=== PATIENT | female | born 1950 | race Caucasian/White ===

== ENCOUNTER 2020-12-21 10:36 | Inpatient (IN) | payer MEDICARE ==
[~2020-12-21] VITALS: Ht 154.9 cm; Wt 65.8 kg
--- NOTE | ~2020-12-21 | PROC ---
[address] [address] PROCEDURE REPORT Name: ARIAN VILCHIS Room: [address] IN M.R.#: [id number] Admission: 12/21/20 Attend Phys: Valerie Chan MD Discharge: Date of : 50 Report #: [id number] THIS REPORT FOR: cc: Perry Gallego MD, Stephen R. MD [facility],Medical Records Staff ~ For GI report, please see the Provation report in Perceptive 7 content. By: 1446Medical Records Staff HARSHAD /FAREED
[~2020-12-21 10:36] MED LIST: LANTUS; LISINOPRIL2.5 MG; NOVOLOG100 UNIT/1; PERCOCET PO; TIROSINT100 MCG
[2020-12-21 10:48] VITALS: BP 195/107
[2020-12-21] MEDS ORDERED: LEVO-T25 MCG PO (10:52)
[2020-12-21] MEDS ORDERED: CELEXA 10 MG TA10 M1 PO (10:53)
[2020-12-21] MEDS ORDERED: PREVAGEN (10:53)
[2020-12-21] MEDS ORDERED: LINSEED OIL1 ML PO (10:54)
[2020-12-21 10:55] LABS: ABSOLUTE BASOPHILS 0.1 thou/uL (0.0-0.2); ABSOLUTE LYMPHOCYTES 1.6 thou/uL (0.8-5.3); ABSOLUTE MONOCYTES 0.4 thou/uL (0.0-1.2); ABSOLUTE NEUTROPHILS 9.1 thou/uL (1.6-8.1); BASOPHILS 0.8 %; EOSINOPHILS 0.3 %; HEMATOCRIT 43.5 % (37.0-47.0); MCH 27.6 pg (26.0-34.0); MCHC 32.2 g/dL (28.0-37.0); MCV 85.8 fL (80.0-100.0); MONOCYTES 3.7 %; NUCLEATED RBCS 0 /100WBC; PLATELET COUNT* 279 thou/uL (150-400); POLYS 81.2 %; RBC 5.08 mil/uL (4.20-5.00); RDW-CV 14.5 % (10.5-14.5); WBC 11.2 thou/uL (4.0-11.0)
[2020-12-21 11:09] LABS: CREATININE 1.2 mg/dL (0.6-1.3)
[2020-12-21 11:25] LABS: CK-MB MASS 1.1 ng/mL (<0.5-3.6); MAGNESIUM 1.8 mg/dL (1.8-2.4); TOTAL BILIRUBIN 1.6 mg/dL (<0.1-1.0); TOTAL PROTEIN 8.3 g/dL (6.4-8.2)
[2020-12-21 11:38] LABS: APTT 21.3 Seconds (25.0-31.3); PROTIME 10.2 Seconds (9.20-11.50)
--- NOTE | 2020-12-21 14:00 | NUR ---
SECOND IV STARTED BY DEICER KIT ASSEMBLER
[2020-12-21 15:35] VITALS: BP 197/104
[2020-12-21 15:57] VITALS: BP 186/94
[2020-12-21] MEDS ORDERED: CELECOXIB200 MG PO (17:07)
[2020-12-21] MEDS ORDERED: ENDOCET 5-3251 EACH PO (17:08)
[2020-12-21] MEDS ORDERED: LANTUS SUBQ (17:09)
[2020-12-21] MEDS ORDERED: CYMBALTA20 MG PO (17:09)
--- NOTE | 2020-12-21 17:09 | EKG ---
[place] [address] ELECTROCARDIOGRAM REPORT Name: ARIAN VILCHIS Room: [address] ADM IN .R.#: [id number] Admission: 12/21/20 Attend Phys: Valerie Chan, Discharge: Date of : 50 Date of Service: 12/21/20 1045 Report #: [id number] THIS REPORT FOR: //name// [facility] ED Test Date: 2020-12-21 Test Time: 10:45:38 Pat Name: ARIAN VILCHIS Department: Room: [facility] Gender: F Organ Builder: FAREED : 1950 Requested By: Nilay Melvin Order Number: [id number] MD: Art Dotson Measurements Intervals [place] Rate: 101 P: 20 CT: 163 QRS: -57 QRSD: 92 T: 54 QT: 313 QTc: 406 Interpretive Statements Sinus tachycardia Left anterior fascicular block Abnormal R-wave progression, late transition Borderline T abnormalities, anterior leads Minimal ST elevation, lateral leads Baseline wander in lead(s) V4 No previous ECG available for comparison Electronically Signed On 12-21-2020 17:09:04 CDT by Art Dotson [email or web address] <ELECTRONICALLY SIGNED> By: Art Dotson MD, [facility] 12/21/20 1709 1045 1045 Art Dotson MD, [facility] /EPI
[2020-12-21] MEDS ORDERED: ZESTRIL10 MG PO (17:10)
[2020-12-21] MEDS ORDERED: APIDRA100 U/ML SUBQ (17:11)
[2020-12-21 17:15] VITALS: BP 180/90
--- NOTE | 2020-12-21 17:22 | NUR ---
PT ADMITTED TO ROOM 226 VIA CART FROM ED AT APPROXIMATELY 1600. REPORT RECEIVED FROM PRAVEEN PARHAM. PT ORIENTED TO ROOM AND CALL LIGHT. ADMISSION ASSESSMENT AND HISTORY CHARTED. SEPSIS SCREENING NEGATIVE. HOME MEDICATIONS RECONCILED. AT BEDSIDE AND UPDATED ON CURRENT PLAN OF CARE. PT A&0X4, DENIES ANY PAIN AT THIS TIME. PT COMPLAINS OF NAUSEA-TREATED WITH PRN PRIOR TO ARRIVAL TO FLOOR. TRACING ST ON THE INJECTION MOLDING MACHINE OFFBEARER RATE IN THE LOW 100'S. ON RA SAT UPPER 90'S. DENIES ANY SHORTNESS OF BREATH. IVF. PT UP WITH 1 ASSIST-WEAKNESS NOTED. GI CONSULT IN PLACE. PT ON FULL LIQUID DIET. MEDICATIONS PER NOV. PT REPOSITIONS SELF. HOURLY ROUNDING OBSERVED. BED IN LOW POSITION. CALL LIGHT WITHIN REACH. WILL CONTINUE PLAN OF CARE.
[2020-12-21 20:00] VITALS: BP 183/99
[2020-12-21 23:22] VITALS: BP 140/80
[2020-12-22 03:49] VITALS: BP 131/72
[2020-12-22 04:46] LABS: CALCIUM 9.6 mg/dL (8.5-10.1); CREATININE 1.1 mg/dL (0.6-1.3); HEMATOCRIT 41.4 % (37.0-47.0); HEMOGLOBIN 13.4 gm/dL (12.0-15.0); MCH 27.5 pg (26.0-34.0); MCHC 32.4 g/dL (28.0-37.0); MCV 84.9 fL (80.0-100.0); MPV 8.5 fl. (7.2-11.1); RBC 4.88 mil/uL (4.20-5.00); RDW-CV 14.8 % (10.5-14.5); WBC 17.1 thou/uL (4.0-11.0)
[2020-12-22 04:49] LABS: POTASSIUM 2.8 mmol/L (3.5-5.1)
[2020-12-22 04:50] LABS: ALBUMIN 4.1 g/dL (3.4-5.0); MAGNESIUM 2.3 mg/dL (1.8-2.4); TOTAL BILIRUBIN 1.2 mg/dL (<0.1-1.0); TOTAL PROTEIN 8.3 g/dL (6.4-8.2)
--- NOTE | 2020-12-22 06:56 | NUR ---
ASSUMED CARE OF PT AFTER REPORT AT 1930. PT A&OX4. VSS. PHYSICAL ASSESSMENT COMPLETED AND CHARTED. PT ON RA. PT TRACING SR/ST ON TELE. PT UPADLIB TO BSC. PT COMLAINED OF NAUSEA -NO RELIEF FROM ZOFRAN. PT WITH EPISODE OF ELEVATED BP. DR GÓMEZ MADE AWARE WITH NEW ORDERS. CALL LIGHT WITHIN REACH.
[2020-12-22 07:47] VITALS: BP 154/81
[2020-12-22] MEDS ORDERED: DRIZALMA SPRINK20 MG PO (07:52)
--- NOTE | 2020-12-22 11:11 | NUR ---
PT VOICED MANY CONCERNS REGARDING PT RECENT SYMPTOMS- CONCERNS BROUGHT TO DR GÓMEZ. WILL CONTINUE PLAN OF CARE.
[2020-12-22 12:03] VITALS: BP 181/81
[2020-12-22 13:47] LABS: CALCIUM 9.7 mg/dL (8.5-10.1); CREATININE 1.1 mg/dL (0.6-1.3)
--- NOTE | 2020-12-22 14:48 | NUR ---
CM S/W PT TO DISCUSS D/C PLAN. PT LIVES WITH SPOUSE. PT IS ACTIVE AND OPERATES A VEHICLE. PT DENIES HX WITH SNF OR HH. PT HAS NO DMES. PT SPOUSE, VALERY, PRESENT AT BESIDE, VALERY IS PT SUPPORT SYSTEM. PT HAS NO ANTICIPATED CM NEEDS.
[2020-12-22 15:40] VITALS: BP 159/80
--- NOTE | 2020-12-22 17:56 | NUR ---
ASSUMED CARE OF PT AT 0730. PT A&0X4, COMPLAINED OF PAIN TO HEAD THIS AM-TREATED WITH PRN TYLENOL WITH RELIEF. PT DENIES ANY NAUSEA THROUGHOUT SHIFT. TRACING SR/ST ON THE LICENSED PRACTICAL NURSE INSTRUCTOR. PT ON RA SAT UPPER 90'S. DENIES ANY SHORTNESS OF BREATH. IVF. POTASSIUM REPLACED PER ELECTROLYTE PROTOCOL-RE DRAW 4.0. PT UP WITH 1 ASSIST TO BSC-WEAKNESS NOTED. IVF AND IV ANTIBIOTICS. GI CONSULT IN PLACE. PLAN FOR GET TOMORROW 12/23. PT NPO AFTER MIDNIGHT. AT BEDSIDE THROUGHOUT SHIFT AND UPDATED ON CURRENT PLAN OF CARE. PT HAD PELVIC ULTRASOUND TODAY-REFER TO RESULTS. AM ASSESSMENT CHARTED. MEDICATIONS PER NOV. PT REPOSITIONS SELF. HOURLY ROUNDING OBSERVED. BED IN LOW POSITION. CALL LIGHT WITHIN REACH. WILL CONTINUE PLAN OF CARE.
[2020-12-22 20:00] VITALS: BP 168/93
[2020-12-23 00:33] VITALS: BP 158/74
[2020-12-23 04:29] LABS: HEMATOCRIT 37.1 % (37.0-47.0); HEMOGLOBIN 12.4 gm/dL (12.0-15.0); MCH 27.9 pg (26.0-34.0); MCHC 33.3 g/dL (28.0-37.0); MCV 83.8 fL (80.0-100.0); MPV 8.1 fl. (7.2-11.1); RBC 4.43 mil/uL (4.20-5.00); RDW-CV 14.7 % (10.5-14.5); WBC 19.5 thou/uL (4.0-11.0)
[2020-12-23 04:45] LABS: ALBUMIN 3.4 g/dL (3.4-5.0); CALCIUM 9.7 mg/dL (8.5-10.1); CREATININE 0.9 mg/dL (0.6-1.3); MAGNESIUM 1.8 mg/dL (1.8-2.4); TOTAL BILIRUBIN 1.3 mg/dL (<0.1-1.0); TOTAL PROTEIN 7.1 g/dL (6.4-8.2)
[2020-12-23 04:53] LABS: POTASSIUM 2.9 mmol/L (3.5-5.1)
[2020-12-23 05:05] VITALS: BP 166/90
--- NOTE | 2020-12-23 05:40 | NUR ---
ASSUMED CARE OF PT AFTER REPORT AT 1930. PT A&OX4. VSS. PHYSICAL ASSESSMENT COMPLETED AND CHARTED. PT ON RA. PT TRACING SR/ST/PAC ON TELE. PT UPADLIB TO BSC. PT DENIES PAIN. PT STILL WITH NAUSEA-MEDS GIVEN PER NOV. INSTRUCTED ON NPO POST MIDNIGHT ORDERED. COMMUNICATES UNDERSTANDING. CALL LIGHT WITHIN REACH.
[2020-12-23 08:00] VITALS: BP 92/68
[2020-12-23 11:51] VITALS: BP 175/93
--- NOTE | 2020-12-23 14:20 | NUR ---
CM INFORMED DURING PRIME ROUNDING OF THE PLAN OF CARE FOR THE PT. GI CONSULTED. PT REMAINS ON IV ABT'S. NO CM D/C PLANNING NEEDS ANTICIPATED AT THIS TIME. CM WILL REMAIN AVAILABLE TO ASSIST WITH D/C PLANNING NEEDS.
[2020-12-23 15:47] VITALS: BP 172/65
[2020-12-23 20:00] VITALS: BP 165/80
[2020-12-24] VITALS: BP 147/96
[2020-12-24 04:00] VITALS: BP 117/96
[2020-12-24 04:23] LABS: HEMATOCRIT 39.8 % (37.0-47.0); MCH 27.6 pg (26.0-34.0); MCHC 32.7 g/dL (28.0-37.0); MCV 84.4 fL (80.0-100.0); MPV 8.2 fl. (7.2-11.1); RBC 4.72 mil/uL (4.20-5.00); RDW-CV 14.5 % (10.5-14.5); WBC 15.6 thou/uL (4.0-11.0)
[2020-12-24 04:40] LABS: ALBUMIN 3.4 g/dL (3.4-5.0); ALKALINE PHOSPHATASE 174 U/L (46-116); ANION GAP 11 mmol/L (7-16); BUN 15 mg/dL (7-18); CHLORIDE 98 mmol/L (98-107); CO2 25 mmol/L (21-32); CREATININE 0.8 mg/dL (0.6-1.3); GLUCOSE 159 mg/dL (70-99); MAGNESIUM 1.8 mg/dL (1.8-2.4); SGOT 21 U/L (15-37); SGPT 18 U/L (30-65); SODIUM 134 mmol/L (136-145); TOTAL BILIRUBIN 1.5 mg/dL (<0.1-1.0); TOTAL PROTEIN 7.1 g/dL (6.4-8.2)
[2020-12-24 05:13] LABS: POTASSIUM 2.6 mmol/L (3.5-5.1)
--- NOTE | 2020-12-24 05:43 | NUR ---
ASSUMED CARE OF PT AFTER REPORT AT 1930. PT A&OX4. VSS. PHYSICAL ASSESSMENT COMPLETED AND CHARTED. PT ON RA. PT TRACING SR/ST/PAC ON TELE. PT UPADLIB TO BSC. PT COMPLAINED OF HEADACHE & NAUSEA-MED GIVEN PER NOV. PT INSTRUCTED NPO POST MIDNIGHT FOR EGD & COLONOSCOPY. COMMUNICATES UNDERSTANDING. POTASSIUM 2.6- ELECTROLYTE PROTOCOL IN PLACE. CALL LIGHT WITHIN REACH.
[2020-12-24 08:00] VITALS: BP 181/96
[2020-12-24 12:00] VITALS: BP 186/96
--- NOTE | 2020-12-24 13:05 | NUR ---
CM INFORMED DURING PRIME ROUNDING OF THE PLAN OF CARE FOR THE PT. PLAN FOR PT TO POSSIBLY D/C HOME TOMOROW. NO CM D/C PLANNING NEEDS ANTICIPATED. CM WILL REMAIN AVAILABLE TO ASSIST AND FOLLOW NEEDED.
[2020-12-24 16:00] VITALS: BP 170/97
[2020-12-24 19:45] VITALS: BP 135/79
[2020-12-24 22:06] LABS: GLYCOHEMOGLOBIN (HGB A1C) 7.5 % (4.8-5.6)
[2020-12-25] VITALS (7 sets, daily range): BP systolic 144–172; BP diastolic 70–88
--- NOTE | 2020-12-25 02:38 | NUR ---
ASSUMED CARE OF PT AT 1900. PT IS ALERT AND ORIENTED. VSS. PERRLA. NO NAUSEA REPORTED. NO COMPLAINTS OF PAIN. PT IS IN SINUS RYTHM ON THE TELEMETRY. PT IS RESTING COMFORTABLY IN BED. RESPIRATIONS ARE EVEN AND NONLABORED. WILL CONTINUE TO MONITOR PT.
[2020-12-25 04:27] LABS: HEMATOCRIT 41.8 % (37.0-47.0); HEMOGLOBIN 13.8 gm/dL (12.0-15.0); MCH 27.8 pg (26.0-34.0); MCHC 33.1 g/dL (28.0-37.0); MCV 83.9 fL (80.0-100.0); MPV 7.9 fl. (7.2-11.1); RBC 4.98 mil/uL (4.20-5.00); WBC 16.8 thou/uL (4.0-11.0)
[2020-12-25 05:26] LABS: CALCIUM 9.5 mg/dL (8.5-10.1); CREATININE 0.8 mg/dL (0.6-1.3); MAGNESIUM 1.6 mg/dL (1.8-2.4)
[2020-12-25 05:39] LABS: POTASSIUM 2.7 mmol/L (3.5-5.1)
--- NOTE | 2020-12-25 07:11 | NUR ---
BLADDER SCAN 175 AT 0400
--- NOTE | 2020-12-25 13:46 | NUR ---
CM INFORMED DURING PRIME ROUNDING OF THE PLAN OF CARE FOR THE PT. PLAN FOR THE PT TO POSSIBLY D/C HOME TOMORROW. NO CM D/C PLANNING NEEDS ANTICIPATED. CM WILL REMAIN AVAILABLE TO ASSIST AND FOLLOW NEEDED.
--- NOTE | 2020-12-25 18:47 | NUR ---
Pt reports mild nausea this am, but better as day progressed. Medicated for c/o arthritic pain and neck pain today; see NOV. IVF dc'd, and most IV meds changed to PO. Reglan started today. Poor appetite today. Will continue to monitor.
--- NOTE | 2020-12-26 03:29 | NUR ---
ASSUMED CARE OF PT AT 1900. PT IS ALERT AND ORIENTED. VSS. PERRLA. NO COMPLAINTS OF PAIN. PT HAD SOME NAUSEA. PT IS IN SINUS RYTHM ON THE TELEMETRY. HEART RATE GOES TO THE 130'S WHEN AMBULATING. PT IS IN SINUS RYTHM WITH PAC'S. PT IS SLEEPING QUIETLY IN BED. RESPIRATIONS ARE EVEN AND NONLABORED. WILL CONTINUE TO MONITOR PT.
[2020-12-26 04:13] VITALS: BP 144/86
[2020-12-26 04:25] LABS: HEMATOCRIT 40.1 % (37.0-47.0); HEMOGLOBIN 13.3 gm/dL (12.0-15.0); MCH 27.7 pg (26.0-34.0); MCHC 33.2 g/dL (28.0-37.0); MCV 83.5 fL (80.0-100.0); MPV 8.2 fl. (7.2-11.1); RBC 4.81 mil/uL (4.20-5.00); RDW-CV 14.1 % (10.5-14.5)
[2020-12-26 04:40] LABS: ALBUMIN 3.2 g/dL (3.4-5.0); CREATININE 0.8 mg/dL (0.6-1.3); MAGNESIUM 1.9 mg/dL (1.8-2.4); TOTAL PROTEIN 6.8 g/dL (6.4-8.2)
[2020-12-26 04:44] LABS: POTASSIUM 2.8 mmol/L (3.5-5.1)
[2020-12-26 08:00] VITALS: BP 171/90
[2020-12-26 13:27] VITALS: BP 133/70
[2020-12-26 17:22] VITALS: BP 150/62
--- NOTE | 2020-12-26 18:50 | NUR ---
RECEIVED REPORT. ASSUMED CARE OF PT AROUND 0730. AM ASSESSMENT AND VITALS COMPLETED CHARTED. MEDS PER EMAR; PT WITH LOTS OF DIFFICULTY HANDLING POTASSIUM REPLACEMENT - PT FINALLY ABLE TO TOLERATE 1OMEQ SIZE POTASSIUM TABS. POTASSIUM REPLACEMENT IN PROGRESS. AT BEDSIDE. PO PAIN MEDICATION GIVEN FOR NECK PAIN WITH PARTIAL RELIF. LESS NAUSEA THIS AFTERNOON. HOPEFUL TO GO HOME TOMORROW. LOW FALL RISK PRECAUTIONS IN PLACE. HOURLY ROUNDING. CALL LIGHT WITHIN REACH.
[2020-12-26 20:19] VITALS: BP 138/62
[2020-12-27] VITALS (7 sets, daily range): BP systolic 119–169; BP diastolic 56–92
[2020-12-27 04:30] LABS: POTASSIUM 4.7 mmol/L (3.5-5.1)
[2020-12-27 04:51] LABS: ABSOLUTE BASOPHILS 0.1 thou/uL (0.0-0.2); ABSOLUTE EOSINOPHILS 0.5 thou/uL (0.0-0.7); ABSOLUTE LYMPHOCYTES 1.4 thou/uL (0.8-5.3); ABSOLUTE MONOCYTES 1.2 thou/uL (0.0-1.2); ABSOLUTE NEUTROPHILS 9.4 thou/uL (1.6-8.1); BASOPHILS 0.5 %; EOSINOPHILS 3.8 %; HEMOGLOBIN 13.4 gm/dL (12.0-15.0); LYMPHOCYTES 11.3 %; MCH 27.6 pg (26.0-34.0); MCHC 32.8 g/dL (28.0-37.0); MCV 84.1 fL (80.0-100.0); MONOCYTES 9.4 %; MPV 8.3 fl. (7.2-11.1); NUCLEATED RBCS 0 /100WBC; PLATELET COUNT* 243 thou/uL (150-400); RBC 4.87 mil/uL (4.20-5.00); RDW-CV 14.5 % (10.5-14.5); WBC 12.6 thou/uL (4.0-11.0)
--- NOTE | 2020-12-27 06:00 | NUR ---
PT IS ABLE TO COMMUNICATE HER NEEDS TO STAFF EFFECTIVELY. SHE HAS DENIED THE NEED FOR PAIN MEDICATION UP TO THIS TIME. PT CONTINUES TO HAVE INTERMITTENT NAUSEA ISSUES; MEDS GIVEN; MDs ARE AWARE. POSSIBLE DISCHARGE TODAY OR MONDAY.
--- NOTE | 2020-12-27 06:49 | NUR ---
MESSAGE SENT OUT TO MD BOTTOM HOOP DRIVER REGARDING PT'S PERSISTENT NAUSEA. CURRENT MEDICATIONS HAVE NOT BEEN ABLE TO CONTROL HER NAUSEA, UP TO THIS TIME.
--- NOTE | 2020-12-28 02:27 | NUR ---
ASSUMED CARE OF PT AT 1900. PT IS ALERT AND ORIENTED. VSS. PERRLA. NO COMPLAINTS OF PAIN. PT REPORTED NAUSEA ONCE. NO VOMITING. PTS BLOOD SUGAR WENT DOWN TO 58. CRACKERS AND SPRITE GIVEN TO PT. PT IS IN SINUS RYTHM ON THE TELEMETRY. PT IS RESTING COMFORTABLY IN BED. RESPIRATIONS ARE EVEN AND NONLABORED. WILL CONTINUE TO MONITOR PT.
[2020-12-28 03:43] VITALS: BP 129/77
[2020-12-28 04:50] LABS: ABSOLUTE BASOPHILS 0.1 thou/uL (0.0-0.2); ABSOLUTE EOSINOPHILS 0.5 thou/uL (0.0-0.7); ABSOLUTE LYMPHOCYTES 1.9 thou/uL (0.8-5.3); ABSOLUTE MONOCYTES 1.3 thou/uL (0.0-1.2); ABSOLUTE NEUTROPHILS 10.6 thou/uL (1.6-8.1); BASOPHILS 0.5 %; EOSINOPHILS 3.5 %; HEMATOCRIT 40.8 % (37.0-47.0); HEMOGLOBIN 13.3 gm/dL (12.0-15.0); LYMPHOCYTES 13.4 %; MCH 27.5 pg (26.0-34.0); MCHC 32.6 g/dL (28.0-37.0); MCV 84.6 fL (80.0-100.0); MONOCYTES 9.2 %; MPV 8.2 fl. (7.2-11.1); NUCLEATED RBCS 0 /100WBC; PLATELET COUNT* 236 thou/uL (150-400); POLYS 73.4 %; RBC 4.82 mil/uL (4.20-5.00); RDW-CV 14.8 % (10.5-14.5); WBC 14.4 thou/uL (4.0-11.0)
[2020-12-28 04:55] LABS: CALCIUM 9.4 mg/dL (8.5-10.1); CREATININE 0.9 mg/dL (0.6-1.3); POTASSIUM 3.7 mmol/L (3.5-5.1)
[2020-12-28 07:45] VITALS: BP 169/65
[2020-12-28] MEDS ORDERED: CIPROFLOXACIN500 M1 PO (10:32)
[2020-12-28] MEDS ORDERED: FLAGYL500 M1 PO (10:32)
[2020-12-28 11:50] VITALS: BP 166/63
[2020-12-28 14:51] VITALS: BP 166/63
--- NOTE | 2020-12-28 15:06 | NUR ---
CM INFORMED DURING PRIME ROUNDING OF THE PLAN OF CARE FOR THE PT. PLAN FOR THE PT TO D/C TODAY WITH SELF-CARE. NO CM D/C PLANNING NEEDS ANTICIPATED. CM WILL REMAIN AVAILABLE TO ASSIST AND FOLLOW NEEDED.
[2020-12-28 16:43] VITALS: BP 166/63
--- NOTE | 2020-12-29 17:06 | PATH ---
[address] [address] PATHOLOGY RPT PROCEDURE Name: ARIAN DISLA Room: [address] IN [facility].#: [id number] Admission: 12/21/20 Date of : 50 Discharge: 12/28/20 Report #: [id number] Path Case #: [id number] LCA Accession Number: [id number] . 01 Material submitted: . PART A: gastrointestinal site - GASTRIC POLYPS PART B: colon - RANDOM COLON BIOPSIES PART C: sigmoid colon - SIGMOID COLON HOT SNARE . 01 Clinical history: . EGD AND COLONOSCOPY . 02 Diagnosis: A. Tissue submitted as "gastric polyps": - Single fundic gland polyp, negative for dysplasia/adenomatous change. . B. Random colon biopsies: - Focal fresh hemorrhage in otherwise normal colonic mucosa. . C. SIGMOID COLON POLYP (HOT SNARE): - MODERATELY-DIFFERENTIATED, COLONIC ADENOCARCINOMA ARISING IN TUBULAR ADENOMA WITH HIGH GRADE DYSPLASIA, MARGINS FREE OF MALIGNANCY AND DYSPLASIA THROUGH PLANES OF SECTIONS EXAMINED. SEE COMMENT. LBQ 12/29/2020 1008 Local . 02 Comment: In the sigmoid polyp (C), which also shows abundant high grade dysplasia, moderately differentiated adenocarcinoma is seen to focally invade into the submucosa and the inked/cauterized surgical margin is free of malignancy and dysplasia through multiple planes of sections examined. No vascular or perineural invasion is seen. Reviewed with Dr. Wade Main on 12/29/2020 who agrees with the diagnosis. Dr. Kessler's nurse, Divina, notified at approximately 1630 on 12/29/2020. (CLOTILDE/db; 12/28/2020) . 02 Electronically signed: . Rigoberto Wright MD, Pathologist NPI- [id number] . 01 Gross description: . A. The specimen is received in formalin, labeled "Arian Disla, gastric polyps". Received is a segment of pale mooney tissue measuring 0.4 cm in maximum dimensions. The specimen is submitted entirely in cassette A1. Upon careful inspection and filtration, no additional tissue is found remaining within the container. . B. The specimen is received in formalin, labeled "Arian Disla, random colon biopsies". Received are multiple [place] [address] PATHOLOGY RPT PROCEDURE Name: ARIAN DISLA Room: [address] IN [facility]#: [id number] Admission: 12/21/20 Date of : 50 Discharge: 12/28/20 Report #: [id number] Path Case #: [id number] ranging in size from 0.2-0.4 cm in maximum dimensions. The specimen is submitted entirely in cassette B1. . C. The specimen is received in formalin, labeled "Arian Disla, sigmoid polyp". The specimen is additionally labeled on the requisition as, "sigmoid colon". Received is a segment of red-brown tissue measuring 1.0 x 0.9 x 0.6 cm in greatest dimensions. The surgical margin is inked. The specimen is trisected perpendicular to the margin and entirely submitted in cassette C1. ([facility]; 12/25/2020) QAC/QAC 12/25/2020 1137 Local . 02 Pathologist provided ICD-10: K31.7, K62.5, C18.7, D12.5 . 02 CPT . 510332, 625809, 601343 Specimen Comment: A courtesy copy of this report has been sent to [phone] Specimen Comment: Report sent to / DR GÓMEZ Performed at: [address], [place], [place] [id number] MD Wade Main MD Phone: [phone] Performed at: [facility] [address], [place], [place] [id number] MD Rigoberto Wright MD Phone: [phone]
== END 2020-12-28 15:30 | disposition home or self-care (01) | DRG 372 ==
LOC: M.ERS 10:36 → M.TBA-ER 13:36 → M.2W 13:36
PROVIDERS: Family Medicine; Internal Medicine; Internal Medicine Gastroenterology; ADMIT Internal Medicine; ATTEND Internal Medicine
PROC: 0DB68ZX Excision of Stomach, Via Natural or Artificial Opening Endoscopic, Diagnostic (ICD-10-PCS; principal; 2020-12-24)
PROC: 0DBE8ZX Excision of Large Intestine, Via Natural or Artificial Opening Endoscopic, Diagnostic (ICD-10-PCS; principal; 2020-12-24)
PROC: 0DBN8ZZ Excision of Sigmoid Colon, Via Natural or Artificial Opening Endoscopic (ICD-10-PCS; principal; 2020-12-24)
DX: A04.9 Bacterial intestinal infection, unspecified (principal); R65.10 Systemic inflammatory response syndrome (SIRS) of non-infectious origin without acute organ dysfunction; N17.9 Acute kidney failure, unspecified; M19.90 Unspecified osteoarthritis, unspecified site; E11.65 Type 2 diabetes mellitus with hyperglycemia; M06.9 Rheumatoid arthritis, unspecified; E80.6 Other disorders of bilirubin metabolism; N18.9 Chronic kidney disease, unspecified; E11.22 Type 2 diabetes mellitus with diabetic chronic kidney disease; I12.9 Hypertensive chronic kidney disease with stage 1 through stage 4 chronic kidney disease, or unspecified chronic kidney disease; N83.209 Unspecified ovarian cyst, unspecified side; K31.7 Polyp of stomach and duodenum; K44.9 Diaphragmatic hernia without obstruction or gangrene; K57.30 Diverticulosis of large intestine without perforation or abscess without bleeding; K64.8 Other hemorrhoids; E87.6 Hypokalemia; Z20.822 Contact with and (suspected) exposure to COVID-19; Z90.49 Acquired absence of other specified parts of digestive tract; Z88.0 Allergy status to penicillin; Z79.4 Long term (current) use of insulin; Z79.899 Other long term (current) drug therapy

== ENCOUNTER 2020-12-30 22:09 | Inpatient (IN) | payer MEDICARE ==
[~2020-12-30] VITALS: Ht 157.5 cm; Wt 64.0 kg
--- NOTE | ~2020-12-30 | PROC ---
[address] [address] PROCEDURE REPORT Name: ARIAN VILCHIS Room: [address] IN M.R.#: [id number] Admission: 12/31/20 Attend Phys: Florentino Dhillon MD Discharge: 01/04/21 Date of : 50 Report #: [id number] THIS REPORT FOR: cc: Perry Gallego MD, Stephen R. MD [facility],Medical Records Staff ~ For GI report, please see the Provation report in Perceptive 7 content. By: 1058Medical Records Staff [facility] /FAREED
[~2020-12-30 22:09] MED LIST changes: +APIDRA100 U/ML SUBQ; +CELECOXIB200 MG PO; +CELEXA 10 MG TA10 M1 PO; +CIPROFLOXACIN500 M1 PO; +CYMBALTA20 MG PO; +DRIZALMA SPRINK20 MG PO; +ENDOCET 5-3251 EACH PO; +FLAGYL500 M1 PO; +LANTUS SUBQ; +LEVO-T25 MCG PO; +LINSEED OIL1 ML PO; +PREVAGEN; +ZESTRIL10 MG PO
[2020-12-30 22:10] VITALS: BP 110/44
[2020-12-30 23:06] LABS: ABSOLUTE BASOPHILS 0.1 thou/uL (0.0-0.2); ABSOLUTE EOSINOPHILS 0.3 thou/uL (0.0-0.7); ABSOLUTE MONOCYTES 1.5 thou/uL (0.0-1.2); ABSOLUTE NEUTROPHILS 9.2 thou/uL (1.6-8.1); EOSINOPHILS 1.8 %; HEMATOCRIT 39.2 % (37.0-47.0); HEMOGLOBIN 12.7 gm/dL (12.0-15.0); LYMPHOCYTES 21.5 %; MCH 27.6 pg (26.0-34.0); MCHC 32.4 g/dL (28.0-37.0); MCV 85.2 fL (80.0-100.0); MONOCYTES 10.7 %; MPV 7.9 fl. (7.2-11.1); NUCLEATED RBCS 0 /100WBC; PLATELET COUNT* 301 thou/uL (150-400); RDW-CV 14.9 % (10.5-14.5); WBC 14.2 thou/uL (4.0-11.0)
[2020-12-30 23:14] LABS: CALCIUM 9.6 mg/dL (8.5-10.1)
[2020-12-30 23:19] LABS: ALBUMIN 3.5 g/dL (3.4-5.0); TOTAL BILIRUBIN 0.5 mg/dL (<0.1-1.0); TOTAL PROTEIN 6.9 g/dL (6.4-8.2)
[2020-12-30 23:46] LABS: URINE BLOOD NEGATIVE (Negative); URINE CLARITY CLEAR; URINE COLOR DARK YELLOW; URINE GLUCOSE-RANDOM TRACE (Negative); URINE KETONES 1+ (Negative); URINE LEUKOCYTES-REFLEX TRACE (Negative); URINE PROTEIN 1+ (Negative); URINE SPECIFIC GRAVITY >= 1.030 (1.005-1.030)
[2020-12-30 23:47] LABS: URINE BILIRUBIN 2+ (Negative); URINE NITRITE-REFLEX POSITIVE (Negative)
[2020-12-30 23:55] LABS: AMORPHOUS URATES Few /LPF (None Seen); BACTERIA-REFLEX >30 Many /HPF (None Seen); COARSE GRANULAR CASTS 0-3 Few /LPF (None Seen); FINE GRANULAR CASTS 0-3 Few /LPF (None Seen); HYALINE CASTS 0-3 Few /LPF (None Seen); ICTOTEST (BILI CONFIRMATORY) Negative (Negative); MUCUS >6 Heavy strn/LPF (None Seen); SQUAMOUS 4-10 Moderate /LPF (0-3); URINE RBC 3-10 Few /HPF (0-2); URINE WBC-REFLEX 6-15 Few /HPF (0-5)
[2020-12-31] VITALS (12 sets, daily range): BP systolic 98–161; BP diastolic 26–72
--- NOTE | 2020-12-31 06:51 | NUR ---
PT TO FLOOR APPROX 0250, ASSESSMENT COMPLETED CHARTED. PT BLOOD PRESSURE MAINTAINED WNL.
--- NOTE | 2020-12-31 10:29 | EKG ---
[place] [address] ELECTROCARDIOGRAM REPORT Name: ARIAN VILCHIS Room: [address] ADM IN .R.#: [id number] Admission: 12/31/20 Attend Phys: Florentino Dhillon, Discharge: Date of : 50 Date of Service: 12/30/202221 Report #: [id number] THIS REPORT FOR: //name// [facility] ED Test Date: 2020-12-30 Test Time: 22:22:22 Pat Name: ARIAN VILCHIS Department: Room: [facility] Gender: F Business Process Lead: ANTONIO : 1950 Requested By: Keyanna Reyna Order Number: [id number] MD: Wyatt Rios Measurements Intervals [place] Rate: 87 P: 50 MA: 164 QRS: -44 QRSD: 148 T: 92 QT: 384 QTc: 462 Interpretive Statements Sinus rhythm Atrial premature complexes Nonspecific IVCD with LAD Compared to ECG 12/21/2020 10:45:38 Atrial premature complex(es) now present Intraventricular conduction delay now present Sinus tachycardia no longer present Electronically Signed On 12-31-2020 10:29:11 CDT by Wyatt Rios [email or web address] <ELECTRONICALLY SIGNED> By: Wyatt Rios MD, [facility] 12/31/20 1029 21 21 Wyatt Rios MD, [facility] /EPI
--- NOTE | 2020-12-31 10:38 | NUR ---
Admission Assessment Admitted from ER admission from Home Mental Status upon admission Confused Living Arrangements: Stairs Elevator House Stairs on outside only for entrance to home Lives with: or they live with patient spouse-Bryan adult children-Tran Mayfield has been staying at parent home to assist them since patient last hospitalization Support system: Name Phone number Relationship If different than face sheet Bryan Disla [phone] Tammy Tran [phone] Dtr Can patient return to prior living arrangements? Yes Activities of daily living: Independent Bathing/Dressing-Dtr assist with in/out tub and drying off Dtr or husb driving last few months due to patients declining health and mental status Assistive device: No Prior resource use: None Notes: No prior history with HH, SNF, or Rehab unit
--- NOTE | 2020-12-31 15:01 | NUR ---
Status updated to Tele today. Anticpate discharge 2-3 days. IV antibiotics. Anticipate Home Health-Dr is currently attempting to care for both aging parents with health issues. she has been staying at their home. pt is requiring bathing and dressing assistance prior to hospitalization and has some confusion or increasing confusion per dtr, concern for medication regime safely followed. No HH history, pt is readmit within 30 days also Case and plan of care reviewed with MD each weekday during patient's length of stay. Continue plan of care per MD orders for current dx. Will continue follow for any dc planning needs.
--- NOTE | 2020-12-31 19:25 | NUR ---
PT TRANSFERRED TO ROOM 218 VIA WHEELCHAIR FROM ICU AT APPROXIMATELY 1710. REPORT RECEIVED FROM PRAVEEN ARAUJO. PT ORIENTED TO ROOM AND CALL LIGHT. VSS. PT REQUESTING TYLENOL FOR GENERALIZED PAIN. TOP AND TRIM WORKER DOC PAGED. AWAITING CALL BACK. REPORT GIVEN TO ONCOMING SHIFT.
[2021-01-01 05:04] VITALS: BP 144/73
--- NOTE | 2021-01-01 05:20 | NUR ---
PT A&O, VSS ON RA. MEDS GIVEN ORDERED. TYLENOL GIVEN FOR CHRONIC PAIN. PATIÑO IN PLACE. PT TURNS SELF. CALL LIGHT WITHIN REACH. WILL CONTINUE TO MONITOR.
[2021-01-01 08:00] VITALS: BP 136/78
[2021-01-01 11:32] LABS: ABSOLUTE BASOPHILS 0.1 thou/uL (0.0-0.2); ABSOLUTE EOSINOPHILS 0.2 thou/uL (0.0-0.7); ABSOLUTE LYMPHOCYTES 1.8 thou/uL (0.8-5.3); ABSOLUTE MONOCYTES 0.7 thou/uL (0.0-1.2); ABSOLUTE NEUTROPHILS 8.1 thou/uL (1.6-8.1); EOSINOPHILS 1.7 %; HEMATOCRIT 38.7 % (37.0-47.0); HEMOGLOBIN 12.5 gm/dL (12.0-15.0); LYMPHOCYTES 16.3 %; MCH 27.6 pg (26.0-34.0); MCHC 32.4 g/dL (28.0-37.0); MCV 85.2 fL (80.0-100.0); MONOCYTES 6.6 %; MPV 7.6 fl. (7.2-11.1); NUCLEATED RBCS 0 /100WBC; PLATELET COUNT* 244 thou/uL (150-400); POLYS 74.4 %; RBC 4.55 mil/uL (4.20-5.00); RDW-CV 14.8 % (10.5-14.5); WBC 10.9 thou/uL (4.0-11.0)
[2021-01-01 11:45] VITALS: BP 136/59
--- NOTE | 2021-01-01 11:51 | NUR ---
PLAN: PPT MAY BE READY TO D/C OVER THE WEEKEND. PT IS TX FROM ICU. PT IS KNOWN TO THIS CM FROM PREVIOUS ADMISSION. PT IS FROM HOME WITH SPOUSE. PT WAS INDEPENDENT WITH ADL'S PRIOR TO HER PREVIOUS ADMIT. HOWEVER HER DTR INFORM THAT THE PT HAS GOTTEN WEAKER AND SHE HAS BEEN ASSISTING HER WITH CARES AT HOME. PT USES 0 DME. PT HAS 0 HX OF HH OR SNF. PT MAY NEED HH AT D/C. ANISH REP TO SEE PT TO DISCUSS NEED FOR HH AT D/C. CM WILL REMAIN AVAILABLE TO ASSIST AND FOLLOW WITH D/C PLANNING.
[2021-01-01 11:57] LABS: CALCIUM 8.6 mg/dL (8.5-10.1); CREATININE 1.1 mg/dL (0.6-1.3); POTASSIUM 3.4 mmol/L (3.5-5.1); TOTAL BILIRUBIN 0.6 mg/dL (<0.1-1.0); TOTAL PROTEIN 6.3 g/dL (6.4-8.2)
--- NOTE | 2021-01-01 13:53 | NUR ---
[facility] Nurse Transition Navigator Bedside Assessment Note: Met with patient who still has a procedure scheduled for tomorrow so will most likely not dc till Monday, maybe Monday. Patient lives with her and her grown daughter is RN who is very involved with her. Patient is a very quick readmit and this was due to concerns over low bp. Patient does not think she will need home care but since readmit so quickly we decided it would be such a good idea to be assessed and see what we could do to keep her healthy at home.
[2021-01-01 16:00] VITALS: BP 154/70
[2021-01-01 19:40] VITALS: BP 158/90
[2021-01-02 00:11] VITALS: BP 84/60
[2021-01-02 00:30] VITALS: BP 142/69
[2021-01-02 04:06] VITALS: BP 139/76
[2021-01-02 04:08] LABS: ABSOLUTE BASOPHILS 0.1 thou/uL (0.0-0.2); ABSOLUTE EOSINOPHILS 0.3 thou/uL (0.0-0.7); ABSOLUTE LYMPHOCYTES 2.4 thou/uL (0.8-5.3); ABSOLUTE MONOCYTES 0.8 thou/uL (0.0-1.2); ABSOLUTE NEUTROPHILS 6.7 thou/uL (1.6-8.1); BASOPHILS 0.5 %; EOSINOPHILS 3.3 %; HEMATOCRIT 37.6 % (37.0-47.0); HEMOGLOBIN 12.1 gm/dL (12.0-15.0); LYMPHOCYTES 23.5 %; MCH 27.8 pg (26.0-34.0); MCHC 32.2 g/dL (28.0-37.0); MCV 86.2 fL (80.0-100.0); MONOCYTES 7.6 %; MPV 7.7 fl. (7.2-11.1); NUCLEATED RBCS 0 /100WBC; PLATELET COUNT* 237 thou/uL (150-400); POLYS 65.1 %; RBC 4.36 mil/uL (4.20-5.00); RDW-CV 14.7 % (10.5-14.5); WBC 10.3 thou/uL (4.0-11.0)
[2021-01-02 04:17] LABS: ALBUMIN 2.8 g/dL (3.4-5.0); CALCIUM 8.7 mg/dL (8.5-10.1); CREATININE 0.9 mg/dL (0.6-1.3); TOTAL BILIRUBIN 0.5 mg/dL (<0.1-1.0); TOTAL PROTEIN 5.9 g/dL (6.4-8.2)
[2021-01-02 04:19] LABS: POTASSIUM 2.9 mmol/L (3.5-5.1)
--- NOTE | 2021-01-02 04:22 | NUR ---
recieved critical potassium level 2.9. dr castillo paged for orders, electrolyte protocol not on EMAR.
[2021-01-02 08:00] VITALS: BP 146/103
[2021-01-02 16:00] VITALS: BP 167/87
--- NOTE | 2021-01-02 16:21 | NUR ---
RECEIVED REPORT AROUND 0715. ASSUMED CARE. VS AND ASSESSMENT CHARTED. IV INTACT RIGHT CHEST PICC. HEART MONITOR TAKEN OFF THIS AM. MED/SURG NOW. PT HAD COLONOSCOPY THIS SHIFT. FAMILY WITH PT UPDATED ON SITUATION. PT EMOTIONAL FROM FINDINGS OF COLON. MEDS GIVEN PER NOV. GAVE PT A CHOCOLATE MILKSHAKE,ABLE TO TOLERATE SOME. PT FELT NAUSEATED. HOURLY ROUNDING PERFORMED. CALL LIGHT WITHIN REACH. WILL CONTINUE TO MONITOR. PHYSICAL THERAPY WORKED WITH PT THIS SHIFT. PT UP STAND BY ASSIST.
[2021-01-02 20:00] VITALS: BP 149/85
[2021-01-03 00:13] VITALS: BP 150/87
[2021-01-03 04:17] LABS: ABSOLUTE BASOPHILS 0.1 thou/uL (0.0-0.2); ABSOLUTE EOSINOPHILS 0.1 thou/uL (0.0-0.7); ABSOLUTE LYMPHOCYTES 2.1 thou/uL (0.8-5.3); ABSOLUTE MONOCYTES 1.1 thou/uL (0.0-1.2); ABSOLUTE NEUTROPHILS 16.3 thou/uL (1.6-8.1); BASOPHILS 0.5 %; EOSINOPHILS 0.4 %; HEMATOCRIT 41.7 % (37.0-47.0); HEMOGLOBIN 13.3 gm/dL (12.0-15.0); LYMPHOCYTES 10.5 %; MCH 27.2 pg (26.0-34.0); MCHC 31.9 g/dL (28.0-37.0); MCV 85.3 fL (80.0-100.0); MONOCYTES 5.4 %; MPV 8.6 fl. (7.2-11.1); NUCLEATED RBCS 0 /100WBC; PLATELET COUNT* 299 thou/uL (150-400); POLYS 83.2 %; RBC 4.89 mil/uL (4.20-5.00); RDW-CV 14.7 % (10.5-14.5); WBC 19.6 thou/uL (4.0-11.0)
[2021-01-03 04:32] LABS: ALBUMIN 3.2 g/dL (3.4-5.0); CALCIUM 9.3 mg/dL (8.5-10.1); CREATININE 0.7 mg/dL (0.6-1.3); MAGNESIUM 1.4 mg/dL (1.8-2.4); POTASSIUM 3.1 mmol/L (3.5-5.1); TOTAL BILIRUBIN 0.8 mg/dL (<0.1-1.0)
[2021-01-03 08:00] VITALS: BP 104/53
[2021-01-03 12:10] VITALS: BP 112/71
[2021-01-03 14:47] LABS: MAGNESIUM 2.2 mg/dL (1.8-2.4)
[2021-01-03 16:15] VITALS: BP 99/48
--- NOTE | 2021-01-03 16:59 | NUR ---
RECEIVED REPORT AROUND 714. ASSUMED CARE. VS AND ASSESSMENT CHARTED. IV INTACT RIGHT CHEST PICC. RIGHT FOREARM. MED/SURG STATUS. PT EATING SOME FOODS THIS SHIFT. TOLERATING BETTER THAN YESTERDAY. PT LYING IN BED. MEDS GIVEN PER NOV. HOURLY ROUNDING PERFORMED. MAGNESIUM AND POTASSIUM REPLACED THIS SHIFT. PT STABLE ON FEET. ABLE TO CALL OUT WHEN SHE NEEDS HELP TO BATHROOM. FAMILY VISITED THIS SHIFT. UPDATED ON PT. DR ROMAN SAW PT THIS SHIFT. PHYSICAL THERAPY WORKED WITH PT THIS SHIFT. CALL LIGHT WITH IN REACH. WILL CONTINUE TO MONITOR.
[2021-01-03 20:15] VITALS: BP 134/62
[2021-01-03 23:43] VITALS: BP 104/62
[2021-01-04] VITALS (7 sets, daily range): BP systolic 107–120; BP diastolic 45–57
[2021-01-04 05:30] LABS: CALCIUM 9.1 mg/dL (8.5-10.1); CREATININE 1.1 mg/dL (0.6-1.3); MAGNESIUM 1.9 mg/dL (1.8-2.4); POTASSIUM 3.7 mmol/L (3.5-5.1)
--- NOTE | 2021-01-04 07:44 | NUR ---
Pt reports she rested well overnight. C/O bilat knee pain, which is chronic and constant, but no other complaints. VSS. Will continue to monitor.
[2021-01-04] MEDS ORDERED: ERYTHROMYCIN250 M2 PO (09:09)
[2021-01-04] MEDS ORDERED: REGLAN 5 MG TAB5 MG PO (09:09)
--- NOTE | 2021-01-04 10:06 | NUR ---
ASSUMED CARE OF PT AT 0730. PT SITTING UP IN THE RECLINER WAITING FOR BREAKFAST. A&0X4, COMPLAINS OF PAIN TO BILATERAL KNEES AND BACK. PT REQUESTING SOMETHING STRONGER THAN TYLENOL. DR BERMUDEZ NOTIFIED AND ORDERS RECEIVED FOR TRAMADOL-GIVEN WITH PARTIAL RELIEF. PT MED SURG STATUS. WORKED WITH OT THIS AM-TOLERATED WELL. ON RA SAT UPPER 90'S. PT UP WITH SBA TO BATHROOM. PT GOAL FOR TODAY IS PAIN MGMT, WORK WITH THERAPIES AND DISCHARGE PLANNING TO HOME. AM ASSESSMENT CHARTED. MEDICATIONS PER NOV. PT REPOSITIONS SELF. HOURLY ROUNDING OBSERVED. BED IN LOW POSITION. CALL LIGHT WITHIN REACH. WILL CONTINUE PLAN OF CARE.
--- NOTE | 2021-01-04 13:41 | NUR ---
DISCHARGE ORDERS RECEIVED. DISCHARGE INSTRUCTIONS, CARE NOTES, E SCRIPTS AND FOLLOW UP APPTS GIVEN TO PT. PT COMMUNICATES UNDERSTANDING OF DISCHARGE TEACHING. CENTRAL LINE REMOVED WITHOUT DIFFICULTY. PRESSURE APPLIED FOR 5 MINUTES AND PRESSURE DRESSING APPLIED. PT MED SURG STATUS. PT DISCHARGED WITH ALL BELONGINGS AND PAPERWORK VIA WHEELCHAIR WITH NURSING STAFF TO DAUGHTER OWN PERSONAL VEHICLE.
--- NOTE | 2021-01-04 13:46 | NUR ---
PLAN FOR PT TO D/C HOME TODAY WITH HH. CM SPOKE TO THE PT TO DISCUSS THIS. PT DECLINED. RN AND PHYSICIAN INFORMED. CM WILL REMAIN AVAILABLE TO ASSIST AND FOLLOW NEEDED.
--- NOTE | 2021-01-06 10:07 | PATH ---
[place] [address] PATHOLOGY RPT PROCEDURE Name: ARIAN DISLA Room: [address] IN M.R.#: [id number] Admission: 12/31/20 Date of : 50 Discharge: 01/04/21 Report #: [id number] Path Case #: [id number] L[facility] Accession Number: [id number] . 01 Material submitted: . sigmoid colon - 28CM SIGMOID COLON BIOPSIES. Modifiers: 28CM . 01 Clinical history: . SIGMOIDOSCOPY PRIOR BIOPSY SITE (12:51) . 02 Diagnosis: 28 cm sigmoid colon biopsies: - Benign colonic mucosa with evidence of recent prior instrumentation including crypt atrophy and regenerative features, negative for dysplasia/adenomatous change. See comment. (CLOTILDE:era; 01/05/2021) MBStefany 01/05/2021 1818 Local . 02 Comment: Recent sigmoid colon polypectomy at this site showed moderately differentiated colonic adenocarcinoma arising in tubular adenoma with high-grade dysplasia with margins free of involvement through plains of sections examined ([id number]). (CLOTILDE:era; 01/05/2021) . 02 Electronically signed: . Rigoberto Wright MD, Pathologist NPI- [id number] . 01 Gross description: . Received in formalin labeled "Juana Dislajorie and 28 cm sigmoid colon biopsies". Received are 4 jones-mooney soft tissue fragments ranging from 0.2-0.3 cm. Specimen is entirely submitted in cassette A1.([facility]; 01/04/2021) J/[facility] 01/05/2021 1815 Local . 02 Pathologist provided ICD-10: K63.89 . 02 CPT . 882357 Specimen Comment: A courtesy copy of this report has been sent to [phone] Specimen Comment: [phone], Specimen Comment: Report sent to ,DR SWEET / DR GHOSH Performed at: 01 [place] [address] PATHOLOGY RPT PROCEDURE Name: JUANA DISLACHEMO Oglesby Room: [address] IN M.R.#: [id number] Admission: 12/31/20 Date of : 50 Discharge: 01/04/21 Report #: [id number] Path Case #: [id number] [address] [facility] [address], [place], [place] [id number] MD Wade Main MD Phone: [phone] Performed at: [address] [facility] [address], [place], [place] [id number] MD Rigoberto Wright MD Phone: [phone]
== END 2021-01-04 13:41 | disposition home health service (06) | DRG 871 ==
LOC: M.ERS 22:09 → M.ICU 12-31 02:11 → M.TBA-ER 12-31 02:11 → M.ICU 12-31 02:43 → M.2W 12-31 17:18
PROVIDERS: Internal Medicine; Internal Medicine Gastroenterology; Nurse Practitioner Family; Personal Emergency Response Attendant; ADMIT Internal Medicine; ATTEND Internal Medicine
PROC: 02HV33Z Insertion of Infusion Device into Superior Vena Cava, Percutaneous Approach (ICD-10-PCS; principal; 2020-12-31)
PROC: 0DBN8ZX Excision of Sigmoid Colon, Via Natural or Artificial Opening Endoscopic, Diagnostic (ICD-10-PCS; 2021-01-02)
DX: A41.9 Sepsis, unspecified organism (principal); N17.0 Acute kidney failure with tubular necrosis; N39.0 Urinary tract infection, site not specified; C18.9 Malignant neoplasm of colon, unspecified; K63.3 Ulcer of intestine; I10 Essential (primary) hypertension; E86.1 Hypovolemia; I95.9 Hypotension, unspecified; M19.90 Unspecified osteoarthritis, unspecified site; K64.4 Residual hemorrhoidal skin tags; K57.30 Diverticulosis of large intestine without perforation or abscess without bleeding; E11.43 Type 2 diabetes mellitus with diabetic autonomic (poly)neuropathy; K31.84 Gastroparesis; Z20.822 Contact with and (suspected) exposure to COVID-19; Z79.4 Long term (current) use of insulin; Z79.899 Other long term (current) drug therapy; Z88.0 Allergy status to penicillin; Z90.49 Acquired absence of other specified parts of digestive tract